=== PATIENT | female | born 1945 | race Asian ===

== ENCOUNTER 2022-12-11 17:44 | Emergency (ER) | payer MEDICARE, OTHER ==
[~2022-12-11] VITALS: Ht 162.6 cm; Wt 65.9 kg
[2022-12-11] MEDS ORDERED: ATOR10TA PO (17:57)
[2022-12-11] MEDS ORDERED: VALS40TA4 PO (17:57)
[2022-12-11] MEDS ORDERED: ASPI-1450 PO (17:57)
[2022-12-11] MEDS ORDERED: FENO54TA7 PO (17:57)
[2022-12-11] MEDS ORDERED: AMLO-258 PO (17:57)
[2022-12-11] MEDS ORDERED: METO50 PO (17:57)
[2022-12-11] MEDS ORDERED: VALS160T31 PO (18:04)
[2022-12-11] MEDS ORDERED: ATOR40TA71 PO (18:04)
[2022-12-11] MEDS ORDERED: METO-408 PO (18:04)
[2022-12-11] MEDS ORDERED: FENO145T26 PO (18:04)
[2022-12-11] MEDS ORDERED: ACETAMINOPHEN 500 MG TABLET PO ONE (18:45)
[2022-12-11 20:06] VITALS: BP 162/79
== END 2022-12-11 20:09 | disposition home or self-care (01) ==
LOC: EMS 17:45
DX: S20.211A Contusion of right front wall of thorax, initial encounter (principal); E78.00 Pure hypercholesterolemia, unspecified; I10 Essential (primary) hypertension; Z90.710 Acquired absence of both cervix and uterus; X58.XXXA Exposure to other specified factors, initial encounter; Y93.89 Activity, other specified; Y92.89 Other specified places as the place of occurrence of the external cause; Y99.8 Other external cause status
CPT/HCPCS: 71101; 99283

== ENCOUNTER 2024-10-14 14:16 | Emergency (ER) | payer MEDICARE, MEDICAID ==
[~2024-10-14] VITALS: Ht 162.6 cm; Wt 65.9 kg
[~2024-10-14 14:16] MED LIST: AMLO-258 PO; ASPI-1450 PO; ATOR40TA71 PO; FENO145T26 PO; METO-408 PO; VALS160T31 PO
[2024-10-14 14:30] VITALS: TEMP 98.2
[2024-10-14 16:23] LABS: BASOPHILS % (AUTO) 0.4 % (0.0-2.0); EOSINOPHILS % (AUTO) 2.3 % (1.0-6.0); HEMATOCRIT 33.4 % (36-46); HEMOGLOBIN 10.6 g/dL (12.0-16.0); LYMPHOCYTES # (AUTO) 2.9 K/uL (1.0-4.8); LYMPHOCYTES % (AUTO) 19.9 % (22.0-44.0); MEAN CORPUSCULAR HEMOGLOBIN 28.7 pg (26.0-34.0); MEAN CORPUSCULAR HGB CONC 31.8 G/dL (31.0-37.0); MEAN CORPUSCULAR VOLUME 90 fL (80-100); MONOCYTES # (AUTO) 0.9 K/uL (0.1-1.0); MONOCYTES % (AUTO) 6.5 % (2.0-9.0); NEUTROPHILS # (AUTO) 10.2 K/uL (1.8-7.7); NEUTROPHILS % (AUTO) 70.9 % (40.0-70.0); PLATELET COUNT (AUTO) 163 K/uL (150-450); RED CELL DISTRIBUTION WIDTH 14.7 % (11.5-14.5); WHITE BLOOD COUNT (AUTO) 14.4 K/uL (4.5-11.0)
[2024-10-14 16:25] LABS: CALCIUM, TOTAL 9.7 mg/dL (8.8-10.5); CREATININE 1.21 mg/dL (0.60-1.30); POTASSIUM 4.7 mmol/L (3.5-5.1)
[2024-10-14 19:11] VITALS: BP 142/70; PULSE 67; RESP 18; O2SAT 98
[2024-10-14] MEDS ORDERED: DICL100G60 TP (19:24)
== END 2024-10-14 19:55 | disposition home or self-care (01) ==
LOC: EMS 14:16
DX: M25.562 Pain in left knee (principal); R51.9 Headache, unspecified; I10 Essential (primary) hypertension; E78.00 Pure hypercholesterolemia, unspecified; Z90.710 Acquired absence of both cervix and uterus; Z79.899 Other long term (current) drug therapy; Z79.82 Long term (current) use of aspirin; W06.XXXA Fall from bed, initial encounter; Y93.89 Activity, other specified; Y92.89 Other specified places as the place of occurrence of the external cause; Y99.8 Other external cause status
CPT/HCPCS: 29505; 70450; 80048; 85025; 99284